=== PATIENT | male | born 1980 | race African-American/Black ===

== ENCOUNTER 2022-02-17 02:07 | Emergency (ER) | payer OTHER ==
[2022-02-17] MEDS ORDERED: IBUPROFEN 200 MG TAB PO ONE (02:33)
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
[2022-02-17 03:36] VITALS: BP 123/99; TEMP 98.6; O2SAT 96
--- NOTE | 2022-02-17 14:36 | RAD REPORT ---
EXAM DESCRIPTION: RAD - Wrist Left 3 View - 02/17/2022 2:50 am CLINICAL HISTORY: 41 years Male PAIN TECHNIQUE: Three x-ray views of the left wrist were performed on 02/17/2022 at 2:45 AM. COMPARISON: None FINDINGS: There is no evidence of fracture or dislocation. There is no significant arthritis or dege nerative change. No focal lytic or sclerotic bone lesions are seen. Bone mineralization is normal. No acute soft tissue abnormalities are identified. IMPRESSION: No evidence of acute osseous injury involving the left wrist. Electronically signed by: Rosi Ayala DO 02/17/2022 3:10 AM [facility] Due to temporary technical issues with the PACS/Fluency reporting system, reports are being signed by the in house radiologists without review as a courtesy to insure prompt reporting. The interpreting radiologist is fully responsible for the content of the report.
== END 2022-02-17 03:31 | disposition home or self-care (01) ==
LOC: ER 02:07
DX: M25.532 Pain in left wrist (principal); I10 Essential (primary) hypertension
CPT/HCPCS: 99284